=== PATIENT | female | born 1985 | race Two or more races ===

== ENCOUNTER → 2019-06-26 | Outpatient (CLI) | payer OTHER | END | disposition home or self-care (01) | LOC: PRENATAL 13:30 | DX: O35.3XX0 Maternal care for (suspected) damage to fetus from viral disease in mother, not applicable or unspecified (principal); O34.42 Maternal care for other abnormalities of cervix, second trimester; Z36.89 Encounter for other specified antenatal screening ==

== ENCOUNTER 2019-10-16 13:30 | Inpatient (IN) | payer OTHER ==
[~2019-10-16] VITALS: Ht 167.6 cm; Wt 3.2 kg
[2019-11-07] MEDS ORDERED: PRENATAL TABLE1 EAC2 PO (08:47)
[2019-11-10] MEDS ORDERED: DOCUSATE SODIU100 MG PO (12:30)
[2019-11-10] MEDS ORDERED: CODE1TAB37 PO (12:30)
[2019-11-10] MEDS ORDERED: IBU400 MG PO (12:31)
== END 2019-11-10 13:24 | DRG 788 ==
LOC: LDR 11-07 06:16 → SURG-SUITE 11-07 06:16 → O/R 11-07 06:16 → SURG-SUITE 11-07 18:24 → OB/GYN 11-14 13:30
PROVIDERS: ADMIT Obstetrics & Gynecology; ATTEND Obstetrics & Gynecology
PROC: 4A1HXCZ Monitoring of Products of Conception, Cardiac Rate, External Approach (ICD-10-PCS; 2019-11-07)
PROC: 10D00Z1 Extraction of Products of Conception, Low, Open Approach (ICD-10-PCS; principal; 2019-11-07 13:00)
DX: O76 Abnormality in fetal heart rate and rhythm complicating labor and delivery (principal); O82 Encounter for cesarean delivery without indication; Z20.828 Contact with and (suspected) exposure to other viral communicable diseases; Z37.0 Single live birth; Z3A.39 39 weeks gestation of pregnancy